=== PATIENT | female | born 1980 | race Caucasian/White ===

== ENCOUNTER 2018-06-24 14:35 | Emergency (ER) | payer OTHER, MEDICAID, SELFPAY ==
[2018-06-24 14:39] VITALS: BMI 23.3
[2018-06-24 14:44] VITALS: BP 102/69; PULSE 98; RESP 18; TEMP 36.9; O2SAT 98; BMI 23.3
--- NOTE | 2018-06-24 14:48 | ED.ANIMALBIT ---
HPI - Animal Bite <Jennifer Penaloza PA-C - Last Filed: 06/24/18 22:52> General Chief Complaint: Animal Bite Stated Complaint: Dog bite Time Seen by Provider: 06/24/18 14:48 Source: patient Mode of arrival: EMS Limitations: no limitations History of Present Illness HPI narrative: This 38-year-old female is brought in by EMS due to severe hand pain after sustaining dog bites. She states that she was trying to separate her mail pit bull from a friend's pit bull when they got in a fight and she was accidentally bit. The dogs were not going after her. She states they are both vaccinated, both known to her. Last tetanus vaccine was 2 years ago. She was given some fentanyl in the rig without any pain relief. She states pain is in the middle of her hand, difficult to move due to the pain. She does not think she has any other injury. Last tetanus vaccine 2 years ago. She denies any possibility of , LMP 2 days ago. She states that she is supposed to take Plavix due to her history of AR but has not been on this recently. Related Data Previous Rx's Medication Instructions Recorded amoxicillin-pot clavulanate 1 tab PO Q12H #14 tab 06/24/18 naproxen 500 mg PO Q12H #10 tab 06/24/18 oxycodone-acetaminophen [Endocet] 1 tab PO Q4-6H PRN #12 tab 06/24/18 Allergies Allergy/AdvReac Type Severity Reaction Status Date / Time aspirin [ASPIRIN] Allergy Unknown Verified 06/24/18 14:39 lidocaine [LIDOCAINE] Allergy Unknown Verified 06/24/18 14:39 Review of Systems <Jennifer Penaloza PA-C - Last Filed: 06/24/18 22:52> Review of Systems ROS Unobtainable: All systems reviewed & are unremarkable except as noted in HPI and below PFSH <SAVANNA Alatorre Last Filed: 06/24/18 22:52> Medical History No pertinent family history (Chronic) Status post myocardial infarction (Resolved) Surgical History No pertinent past surgical history (Chronic) Exam <SAVANNA Alatorre Last Filed: 06/24/18 22:52> Narrative Exam Narrative: GENERAL APPEARANCE: Patient sitting comfortably, in no distress. LUNGS: Clear to auscultation bilaterally. HEART: Rate and rhythm regular without murmur, normal S1 and S2, no S3 or S4. DERMATOLOGIC: Right hand there are 2 puncture wounds, 1 on the dorsum and 1 on the palmar surface in the middle but not quite corresponding in location. There is some ecchymoses surrounding. There is a 2nd superficial wound proximal to this on the dorsal surface. Palmar wound is approximately 3 mm in depth. Dorsal wound NEUROVASCULAR: Right hand sensation is grossly intact, radial and ulnar pulses 2+, finger tips are warm and pink MUSCULOSKELETAL: Full range of motion of the right wrist. She is able to fully flex and extend the fingers with tenderness. Strength in each finger and the thumb intact in all morales against resistance. Initial Vital Signs Initial Vital Signs: Vital Signs Temperature 98.4 F 06/24/18 14:44 Pulse Rate 98 H 06/24/18 14:44 Respiratory Rate 18 06/24/18 14:44 Blood Pressure 102/69 06/24/18 14:44 Pulse Oximetry 98 06/24/18 14:44 <Uzma Leblanc DO - Last Filed: 06/25/18 19:23> Initial Vital Signs Initial Vital Signs: Vital Signs Temperature 98.4 F 06/24/18 14:44 Pulse Rate 98 H 06/24/18 14:44 Respiratory Rate 18 06/24/18 14:44 Blood Pressure 102/69 06/24/18 14:44 Pulse Oximetry 98 06/24/18 14:44 Course <Jennifer Penaloza PA-C - Last Filed: 06/24/18 22:52> Additional Information: Patient has significant soft tissue swelling and pain, likely due to crush injury as the puncture wounds are of modest depth no evidence of vascular or neurologic compromise at this point. No fracture found on x-ray. Pain improved significantly with compression dressing. She was given pain medication for this weekend and will start antibiotics as well and advised close follow-up with PCP as well as return to ED if any acutely worsening pain, or new signs of infection. Orders Ordered: Discontinued Medications Hydromorphone HCl (Dilaudid) 1 mg IV NOW ONE Stop: 06/24/18 14:54 Last Admin: 06/24/18 15:00 Dose: 1 mg Ketorolac Tromethamine (Toradol) 30 mg IV NOW ONE Stop: 06/24/18 15:25 Last Admin: 06/24/18 15:40 Dose: 30 mg Vital Signs - 8 hr 06/24/18 17:14 Pulse Rate 77 Respiratory Rate 18 Blood Pressure 106/68 Pulse Oximetry 99 <Uzma Leblanc DO - Last Filed: 06/25/18 19:23> Orders Ordered: Discontinued Medications Hydromorphone HCl (Dilaudid) 1 mg IV NOW ONE Stop: 06/24/18 14:54 Last Admin: 06/24/18 15:00 Dose: 1 mg Ketorolac Tromethamine (Toradol) 30 mg IV NOW ONE Stop: 06/24/18 15:25 Last Admin: 06/24/18 15:40 Dose: 30 mg Vital Signs - 8 hr 06/24/18 17:14 Pulse Rate 77 Respiratory Rate 18 Blood Pressure 106/68 Pulse Oximetry 99 Discharge Plan Departure Patient Disposition: Home Clinical Impression: Dog bite Qualifiers: Encounter type: initial encounter Qualified Code(s): W54.0XXA - Bitten by dog, initial encounter Crushing injury of hand, right Qualifiers: Encounter type: initial encounter Qualified Code(s): S67.21XA - Crushing injury of right hand, initial encounter Discharge Date/Time: 06/24/18 18:44 Interventions: ED Discharge Assessment Last Done: 06/24/18 17:14 Instructions: DI for Crush Injury, DI for Dog Bite Activity Restrictions/Additional Instructions: Please call your PCP first thing on Wednesday morning and let them know you were seen in the emergency room and need to arrange follow-up for Wednesday or Wednesday. It is important that you be seen to reassess your swelling and tendon strength. Return as we talked about if you have acutely worsening pain, or new symptoms such as numbness or weakness in the fingers, or if you have lots of redness around the wounds or new fever. You have a lot of swelling in the soft tissues in your hand due to the crush injury, and that is what is causing pain. There was no broken bone found on your x-ray, but as we discussed you may need repeat x-rays or further testing if this is not getting better. Since you are off of your Plavix, I sent in a prescription dose of Naproxen for you to take to help with the inflammation and swelling as that is most likely to help the pain. I have also prescribed a little bit of Percocet for you to use in addition to this if needed over the weekend. Please do not drive if you take that as it may make you sleepy. Prescriptions: New naproxen 500 mg tablet 500 mg PO Q12H Qty: 10 RF: 0 oxycodone-acetaminophen [Endocet] 5-325 mg tablet 1 tab PO Q4-6H PRN (Reason: acute hand pain/injury) Qty: 12 RF: 0 amoxicillin-pot clavulanate 875-125 mg tablet 1 tab PO Q12H Qty: 14 RF: 0 Referrals: Hema Grewal MD [Primary Care Provider] - <Uzma Leblanc DO - Last Filed: 06/25/18 19:23> Cosign ED Attending Cosignature Attestation: I was immediately available in the department for consultation. This documentation has been reviewed and I agree with assessment and plan. Supervised by Uzma Leblanc DO
--- NOTE | 2018-06-24 14:53 | DI.RAD.S_ITS ---
PROCEDURE: XR HAND RT MIN 3V INDICATIONS: dog bites TECHNIQUE: 3 views of the hand(s) acquired. COMPARISON: [facility], CR, XR WRIST RT MIN 3V, 06/24/2018, 15:00. FINDINGS: Bones: No displaced acute fractures or dislocations. However, there is slight deformity identified involving the base of the distal phalanx of the 5th digit, which is not adequately evaluated on this examination, the patient's fingers are mildly flexed. Carpal bones are normally aligned. No suspicious bony lesions. Soft tissues: No suspicious soft tissue calcifications. Prominent soft tissue swelling on the dorsal aspect of the hand is evident. There may be areas of soft tissue air. No unexpected radiopaque foreign bodies. IMPRESSION: 1. No acute fractures of the right hand. 2. Deformity involving the base of the distal phalanx of the 5th digit appears to represent a healed/chronic fracture. Please correlate clinically. 2. Soft tissue swelling on the dorsal aspect of the hand. No radiopaque foreign bodies. Dictated by: Juan Manuel Sanchez M.D. on 06/24/2018 at 14:29 Approved by: Juan Manuel Sanchez M.D. on 06/24/2018 at 14:30
--- NOTE | 2018-06-24 14:53 | DI.RAD.S_ITS ---
PROCEDURE: XR WRIST RT MIN 3V INDICATIONS: dog bites TECHNIQUE: 4 views of the wrist were acquired. COMPARISON: [facility], CR, XR HAND RT MIN 3V, 06/24/2018, 15:00. FINDINGS: Bones: No displaced fracture or dislocation is evident. No suspicious osseous lesions are appreciated. Lucency involving the lunate probably represents degenerative cystic change, but is not adequately characterized. Soft tissues: No suspicious soft tissue calcifications. Prominent soft tissue edema along the dorsal aspect of the hand is evident. No radiopaque foreign bodies are identified. There may be areas of soft tissue air. IMPRESSION: 1. No acute fracture of the right wrist. 2. Soft tissue edema on the dorsal aspect of the hand. No foreign bodies. 3. Increased lucency of the lunate probably represents degenerative cystic change. MRI may be helpful for better evaluation, if indicated. Dictated by: Juan Manuel Sanchez M.D. on 06/24/2018 at 14:27 Approved by: Juan Manuel Sanchez M.D. on 06/24/2018 at 14:28
[2018-06-24] MEDS: HYDROMORPHONE 1 MG INJ IV (15:00)
--- NOTE | 2018-06-24 15:17 | PC.NURSE ---
multiple puncture wound to top and palm of right hand with swelling and redness and severe pain
[2018-06-24] MEDS: KETOROLAC 60 MG/2 ML VIAL 30 MG IV (15:40)
--- NOTE | 2018-06-24 15:41 | PC.NURSE ---
Patient crying and yelling in pain saying over and over again it fucking hurts, it fucking hurts. Also reports, the dilaudid helped for like a second and toradol isn't going to do anything.
[2018-06-24 17:14] VITALS: BP 106/68; PULSE 77; RESP 18; O2SAT 99
== END 2018-06-24 18:44 | disposition home or self-care (01) ==
PROVIDERS: Emergency Provider Internal Medicine; Family Provider Family Medicine; PCP Family Medicine
DX: S67.21XA Crushing injury of right hand, initial encounter (principal); W54.0XXA Bitten by dog, initial encounter
CPT/HCPCS: 73110; 73130; 96374; 96375; 99283; J1170; J1885

== ENCOUNTER → 2024-07-22 16:24 | Outpatient (CLI) | payer OTHER, SELFPAY ==
[2024-07-22 18:46] LABS: Urine N gonorrhoeae NOT DETECTED
[2024-07-22 18:49] LABS: Urine Chlamydia NOT DETECTED
== END ==
PROVIDERS: Family Provider Family Medicine; PCP Family Medicine; Visit Provider Nurse Practitioner Family
DX: A64 Unspecified sexually transmitted disease (principal); R30.0 Dysuria; N89.8 Other specified noninflammatory disorders of vagina; Z87.42 Personal history of other diseases of the female genital tract
CPT/HCPCS: 87077; 87086; 87186; 87210; 87491; 87591